=== PATIENT | male | born 2000 | race Caucasian/White ===

== ENCOUNTER 2021-07-01 12:49 | Emergency (ER) | payer OTHER ==
[~2021-07-01] VITALS: Ht 172.7 cm; Wt 101.5 kg
[2021-07-01 13:16] VITALS: BP 169/74
[2021-07-01] MEDS ORDERED: DIPH,PERTUSS(ACELL),TET VAC/PF 0.5 ML SYRINGE. VAX IM ONE (13:30)
[2021-07-01] MEDS ORDERED: LIDOCAINE 2%/EPI 1:100,000 20 ML VIAL. IJ ONE (13:30)
--- NOTE | 2021-07-01 14:38 | PHYS DOC ---
Past History Past Surgical History: Tonsillectomy (MEI RECIO) Additional Smoking Information: PT VAPES Alcohol Use: Occasionally (MEI RECIO) General Adult EDM: Chief Complaint: LACERATION/AVULSION HPI: HPI: Patient is a 20 year old male who presents with laceration to the medial aspect of his right wrist. 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 This occurred about 1230 this afternoon. Patient reports he stopped bleeding on its own after about 10 minutes. Patient's tetanus was last updated in middle school. He has no other complaints at this time. (MEI RECIO) Review of Systems: Review of Systems: ROS negative except as mentioned in HPI. (MEI RECIO) Current Medications: Current Meds: Current Medications Medications (Trade) Dose Ordered Sig/Tanisha Start Time Stop Time Status Last Admin Dose Admin Diphtheria/ Pertussis/Tetanus Vacc (ADACEL TDap SYRINGE) 0.5 ml ONCE ONCE 07/01/21 13:30 07/01/21 13:31 DC 07/01/21 14:09 0.5 ML Lidocaine/ Epinephrine (Xylocaine 2%-Epi 1:100,000) 20 ml 1X ONCE 07/01/21 13:30 07/01/21 13:31 DC 07/01/21 14:08 20 ML (MEI RECIO) Allergies: Allergies: Allergies Coded Allergies Type Severity Reaction Last Updated Verified No Known Drug Allergies 07/01/21 No (MEI RECIO) Physical Exam: PE: Constitutional: Well developed, well nourished, no acute distress, non-toxic appearance. Cardiovascular:Heart rate regular rhythm, no murmur. Lungs & Thorax: Bilateral breath sounds clear to auscultation. Skin: 4 cm laceration noted to the medial aspect of the right wrist without tendon or joint capsule involvement and without foreign bodies. Skin otherwise warm, dry, no erythema, no rash. Extremities: No tenderness, no cyanosis, no clubbing, ROM intact, no edema. Neurologic: Alert and oriented x3, normal motor function, normal sensory function, no focal deficits noted. (MEI RECIO) Current Patient Data: Vital Signs: Vital Signs Date Time Temp Pulse Resp B/P (MAP) Pulse Ox O2 Delivery O2 Flow Rate FiO2 07/01/21 13:16 97.9 93 18 169/74 (105) 99 Room Air (MEI RECIO) Heart Score: C/O Chest Pain: No (MEI RECIO) Course & Med Decision Making: Course & Med Decision Making Pertinent Labs and Imaging studies reviewed. (See chart for details) Laceration is linear and approximates well. Patient states that sheet-metal that caused the laceration did not have any missing pieces. Tetanus vaccine will be administered and laceration will be sutured. Patient will be discharged. (MEI RECIO) Dragon Disclaimer: Dragon Disclaimer: This electronic medical record was generated, in whole or in part, using a voice recognition dictation system. (MEI RECIO) Laceration Repair Lac Repair Indication: Laceration to medial right wrist Procedure: The patient was placed in the appropriate position and anesthesia around the 4 mL 2% lidocaine with epi. The area was then cleansed with normal saline followed by Betadine solution. The laceration was closed with 2 horizontal mattress and 1 simple interrupted 3-0 nylon sutures. The wound area was then dressed with adhesive bandage. Total repaired wound length: 4 cm. Other Items: The patient tolerated the procedure very well. Complications: No complications. (MEI RECIO) Departure Departure: Impression: Primary Impression: Laceration of right wrist without complication Qualified Codes: S61.511A - Laceration without foreign body of right wrist, initial encounter Disposition: HOME / SELF CARE / HOMELESS Condition: STABLE Referrals: PCP,NO (PCP) Patient Instructions: Sutured Wound Care, [id number] Additional Instructions: Please keep the wound clean and dry, especially while working. You may shower, but do not submerge the wound under water for period longer than 2 minutes. If you develop a fever or notice drainage, redness or warmth, please return to the emergency department. The sutures may be removed in 7 to 10 days. You may return to the emergency department for this, or see your primary care physician or urgent care. Attending Signature Attending Signature I have reviewed the [facility]'s note and plan of care. I was available for con sultation as needed during the patient's visit in the emergency department. I agree with the clinical impression, plan, and disposition. (GARLAND OLIVER DO) MEI RECIO Jul 01, 2021 14:38 GARLAND OLIVER DO Jul 01, 2021 17:56
== END 2021-07-01 14:47 | disposition home or self-care (01) ==
LOC: ER 12:49
DX: S61.511A Laceration without foreign body of right wrist, initial encounter (principal); F17.200 Nicotine dependence, unspecified, uncomplicated; W18.09XA Striking against other object with subsequent fall, initial encounter; Y93.89 Activity, other specified; Y92.89 Other specified places as the place of occurrence of the external cause; Y99.8 Other external cause status
CPT/HCPCS: 12002; 90471; 90715; 99283